=== PATIENT | male | born 1950 ===

== ENCOUNTER 2017-01-14 14:34 | Observation (INO) | payer MEDICARE, MEDICAID ==
[2017-01-14 14:35] VITALS: BMI 22.8
[2017-01-14] MEDS ORDERED: Sodium Chloride 0.9% 1,000 ML IV STA ×2 (15:00→18:55)
--- NOTE | 2017-01-14 15:10 | ED PDOC ---
HPI: Psych/Substance Abuse Time Seen by Provider: 01/14/17 14:47 Chief Complaint (Nursing): Weakness/Neurological Deficit Chief Complaint (Provider): Depression/Generalized Weakness History Per: Patient, Family History/Exam Limitations: no limitations Onset/Duration Of Symptoms: Days (since yesterday) Current Symptoms Are (Timing): Still Present Suicide/Self Injury Attempted (Context): None Associated Symptoms: Depression Involuntary Hold By: None Additional Complaint(s): Osmar Bassett is a 66 year old male, with a past medical history inclusive of CAD (s/p CABG), HTN, hypercholesterolemia, type II diabetes, depression and anxiety, who presents to the ED on 01/14/17, accompanied by a family member, for the evaluation of moderate, generalized weakness that he has experienced since yesterday. Per family member, patient has been more depressed of late, with her having noted decreases in both his appetite and activity levels (more sedentary/sleeping more) as well as that he has not been taking care of himself. Denies headache, dizziness, numbness/tingling, focal neurological deficits, chest pain, shortness of breath, cough, vomiting or abdominal pain, though he did experience 1-2 episodes of diarrhea a few days ago; since resolved. Not suicidal or homicidal. No drugs or etoh. PMD: Masood Allen Past Medical History Reviewed: Historical Data, Nursing Documentation, Vital Signs Vital Signs: Last Vital Signs Temp 98.1 F 01/14/17 14:38 Pulse 90 01/14/17 14:38 Resp 20 01/14/17 14:38 BP 106/58 L 01/14/17 14:38 Pulse Ox 99 01/14/17 14:38 - Medical History PMH: Anxiety, Benign Prostatic Hyperplasia, CAD, Depression, Diabetes (type 2), HTN, Hypercholesterolemia Denies: Hepatitis, HIV, Seizures, Sexually Transmitted Disease - Surgical History Surgical History: CABG - Family History Family History: States: Unknown Family Hx - Living Arrangements Living Arrangements: With Family - Social History Current smoker - smoking cessation education provided: Yes - Immunization History Hx Tetanus Toxoid Vaccination: No Hx Influenza Vaccination: No Hx Pneumococcal Vaccination: No - Home Medications Home Medications: Ambulatory Orders Medication Instructions Recorded Fenofibrate 200 mg PO DAILY 04/12/16 Linagliptin/Metformin HCl 1 tab PO BID 04/12/16 [Jentadueto 2.5 mg-1000 mg Tab] Metoprolol Succinate [Toprol XL] 25 mg PO DAILY 04/12/16 Pioglitazone HCl [Actos] 30 mg PO DAILY 04/12/16 Icosapent Ethyl [Vascepa] 2 gm PO BID 06/07/16 Aspirin [Ecotrin] 81 mg PO DAILY #0 tabec 06/17/16 Atorvastatin [Lipitor] 80 mg PO DAILY #0 tab 06/17/16 Donepezil [Aricept] 10 mg PO HS #0 tab 06/17/16 Insulin Detemir [Levemir] 10 units SC HS #0 vial 06/17/16 SITagliptin [Januvia] 50 mg PO DAILY #0 tab 06/17/16 Tamsulosin [Flomax] 0.4 mg PO DAILY #0 cap 06/17/16 buPROPion SR [Wellbutrin SR 150 MG] 150 mg PO DAILY #0 tab 06/17/16 Acetaminophen [Tylenol 325mg tab] 650 mg PO Q4H PRN 06/18/16 Albuterol/Ipratropium [Duoneb 3 3 ml IH BID PRN 06/18/16 mg/0.5 mg (3 ml) UD] Aluminum Hydroxide/Magnesium H 30 ml PO Q4H PRN 06/18/16 [Maalox 30 ml] Bismuth Subsalicylate 524 mg PO Q4H PRN 06/18/16 [Pepto-Bismol] LORazepam [Ativan] 0.5 mg PO Q6H PRN 06/18/16 Magnesium Hydroxide [Milk Of 30 ml PO HS PRN 06/18/16 Magnesia] Nicotine 14 mg/24 hr [Nicoderm CQ] 1 patch TD DAILY 06/18/16 Ondansetron ODT [Zofran ODT] 4 mg PO Q8H PRN 06/18/16 traZODone [Desyrel] 50 mg PO HS PRN 06/18/16 - Allergies Allergies/Adverse Reactions: Allergies Allergy/AdvReac Type Severity Reaction Status Date / Time shellfish derived Allergy RASH Verified 01/14/17 14:36 Review of Systems ROS Statement: Except As Marked, All Systems Reviewed And Found Negative Constitutional: Positive for: Weakness (generalized) Cardiovascular: Negative for: Chest Pain Respiratory: Negative for: Cough, Shortness of Breath Gastrointestinal: Positive for: Diarrhea (1-2 episodes a few days ago, since resolved), Other (decreased appetite). Negative for: Vomiting, Abdominal Pain Neurological: Negative for: Weakness, Numbness, Headache, Dizziness Psych: Positive for: Depression, Other (decreased activity level/increased sleeping) Physical Exam - Reviewed Nursing Documentation Reviewed: Yes Vital Signs Reviewed: Yes - Physical Exam Appears: Positive for: Non-toxic, No Acute Distress Head Exam: Positive for: ATRAUMATIC, NORMOCEPHALIC Skin: Positive for: Normal Color, Warm, Dry Eye Exam: Positive for: EOMI, Normal appearance, PERRL ENT: Positive for: Normal ENT Inspection Neck: Positive for: Normal, Painless ROM, Supple Cardiovascular/Chest: Positive for: Regular Rate, Rhythm. Negative for: Murmur Respiratory: Positive for: Normal Breath Sounds. Negative for: Respiratory Distress Gastrointestinal/Abdominal: Positive for: Normal Exam, Soft. Negative for: Tenderness Back: Positive for: Normal Inspection. Negative for: L CVA Tenderness, R CVA Tenderness Extremity: Positive for: Normal ROM. Negative for: Tenderness, Pedal Edema, Swelling Neurologic/Psych: Positive for: Alert, eyedotter II-XII (intact), Oriented. Negative for: Motor/Sensory Deficits (5/5 x4 extremities) - Laboratory Results Result Diagrams: 01/14/17 16:00 - ECG ECG: Positive for: Interpreted By Me, Viewed By Wy ECG Rhythm: Positive for: Sinus Rhythm, Right Bundle Branch Block Interpretation Of Abn EKG: same as old O2 Sat by Pulse Oximetry: 99 (RA) Pulse Ox Interpretation: Normal - Progress ED Course And Treament: 1648: Dr. Graves to take over care and fu on labs and imaging. Dispo accordingly. Medical Decision Making Medical Decision Makin:47 Initial Impression: depression, generalized weakness Initial Plan: * EKG * CXR * Labs * Alcohol Serum * Troponin I * PTT * PT * Glucose/Blood/POC * Urine Drug Screen * IV NS 1000ml at 1000mls/hr * Reevaluation Scribe Attestation: Documented by Sendy Madrigal, acting as a scribe for Dany Nelson MD. Provider Scribe Attestation: All medical record entries made by the Scribe were at my direction and personally dictated by me. I have reviewed the chart and agree that the record accurately reflects my personal performance of the history, physical exam, medical decision making, and the department course for this patient. I have also personally directed, reviewed, and agree with the discharge instructions and disposition. Disposition - Clinical Impression Clinical Impression: Depression, Weakness - Patient ED Disposition Is Patient to be Admitted: Transfer of Care - Disposition Disposition: Transfer of Care Disposition Time: 16:49 Condition: STABLE Instructions: Weakness (ED) Patient Signed Over To: Yodit Graves
--- NOTE | 2017-01-14 16:11 | RAD ---
HISTORY: DEPRESSED portable upright study 15:15. COMPARISON: 06/18/2016 FINDINGS: LUNGS: No active pulmonary disease. PLEURA: No significant pleural effusion identified, no pneumothorax apparent. CARDIOVASCULAR: No radiographic findings to suggest acute or significant cardiovascular disease. OSSEOUS STRUCTURES: No significant abnormalities. VISUALIZED UPPER ABDOMEN: Normal. OTHER FINDINGS: None. IMPRESSION: No active disease. No significant interval change compared to the prior examination(s).
[2017-01-14 16:27] LABS: BASO # 0.1 K/uL (0.0-0.2); BASO % 1.1 % (0.0-2.0); EOS # 0.2 K/uL (0.0-0.7); EOS % 1.4 % (0.0-4.0); HEMATOCRIT 50.6 % (35.0-51.0); LYMPH # 1.7 K/uL (1.0-4.3); LYMPH % 15.6 % (20.0-40.0); MEAN CELL VOLUME 89.8 fl (80.0-94.0); MEAN CORPUSCULAR HEMOGLOBIN 29.2 pg (27.0-31.0); MEAN CORPUSCULAR HGB CONC 32.6 g/dL (33.0-37.0); MEAN PLATELET VOLUME 9.3 fl (7.2-11.7); MONO # 0.7 K/uL (0.0-0.8); NEUT # 8.3 K/uL (1.8-7.0); NEUT % 75.9 % (50.0-75.0); NRBC % 0.2 % (0.0-0.0); RED CELL DISTRIBUTION WIDTH 14.3 % (11.5-14.5)
[2017-01-14 16:47] LABS: ALCOHOL SERUM < 10 mg/dl (0-10); ALKALINE PHOSPHATASE 82 U/L (38-126); ALT/SGPT 22 U/L (21-72); AST/SGOT 22 U/L (17-59); BILIRUBIN,TOTAL 0.4 mg/dl (0.2-1.3); BLOOD UREA NITROGEN 34 mg/dl (9-20); CALCIUM 10.1 mg/dL (8.4-10.2); CARBON DIOXIDE 25 mmol/L (22-30); CHLORIDE 100 mmol/L (98-107); GFR AFRICAN-AMERICAN > 60; GLUCOSE,RANDOM 204 mg/dL (75-110); SODIUM 131 mmol/l (132-148); TOTAL PROTEIN 8.2 G/DL (6.3-8.2)
[2017-01-14 17:07] LABS: PARTIAL THROMBOPLASTIN TIME 26.7 SECONDS (23.3-32.5)
--- NOTE | 2017-01-14 18:57 | ED PDOC ---
- Laboratory Results Result Diagrams: 01/14/17 16:00 01/14/17 16:00 - ECG O2 Sat by Pulse Oximetry: 99 (RA) Disposition Doctor Will See Patient In The: Hospital - Clinical Impression Clinical Impression: Depression, Weakness, Hyperkalemia, Hyponatremia - POA Present On Arrival: None - Disposition Disposition: Hospitalized as Observation Patient Disposition Time: 18:57 Condition: GUARDED Instructions: Weakness (ED)
[2017-01-14] MEDS ORDERED: Sod Polystyrene Sulf 15 gm/60 ml Oral Susp ONE (19:17)
[2017-01-14] MEDS: Sod Polystyrene Sulf 15 gm/60 ml Oral Susp PO ONE ×2 (19:27→19:30)
[2017-01-15 07:09] LABS: BLOOD UREA NITROGEN 25 mg/dl (9-20); CARBON DIOXIDE 24 mmol/L (22-30); CHLORIDE 106 mmol/L (98-107); GFR AFRICAN-AMERICAN > 60; GLUCOSE,RANDOM 115 mg/dL (75-110); POTASSIUM 4.2 MMOL/L (3.6-5.0); SODIUM 143 mmol/l (132-148)
[2017-01-15 07:11] LABS: BASO # 0.1 K/uL (0.0-0.2); BASO % 1.8 % (0.0-2.0); EOS # 0.2 K/uL (0.0-0.7); EOS % 3.1 % (0.0-4.0); HEMATOCRIT 45.1 % (35.0-51.0); LYMPH % 29.3 % (20.0-40.0); MEAN CELL VOLUME 89.7 fl (80.0-94.0); MEAN CORPUSCULAR HEMOGLOBIN 29.4 pg (27.0-31.0); MEAN CORPUSCULAR HGB CONC 32.8 g/dL (33.0-37.0); MEAN PLATELET VOLUME 8.9 fl (7.2-11.7); MONO # 0.7 K/uL (0.0-0.8); MONO % 9.6 % (0.0-10.0); NEUT # 3.9 K/uL (1.8-7.0); NEUT % 56.2 % (50.0-75.0); RED CELL DISTRIBUTION WIDTH 13.8 % (11.5-14.5); WHITE BLOOD COUNT 6.9 K/uL (4.8-10.8)
--- NOTE | 2017-01-15 08:02 | CARD ---
APPROVED REPORT EKG Measurement Heart [id number] [id number] <Conclusion> Normal sinus rhythm with sinus arrhythmia Left axis deviation Low voltage QRS Incomplete right bundle branch block Inferior infarct, age undetermined Cannot rule out Anteroseptal infarct, age undetermined Abnormal ECG
[2017-01-15] MEDS ORDERED: Patient's Own Med (Linagliptin/Metformin Hcl [Jentadueto 2.5 Mg-1000 Mg Tab] 1 TAB) PO SCH (09:00)
[2017-01-15 09:09] LABS: THYROID STIMULATING HORMONE 1.16 mIU/ML (0.46-4.68)
[2017-01-15] MEDS: Metoprolol Succinate 25 mg XL Tab PO SCH (09:42)
--- NOTE | 2017-01-15 11:19 | CP.PCM.HP ---
History of Present Illness - History of Present Illness History of Present Illness: This is a 66 y/o male admitted through the Er last night for progressive weakness. note dto have elevated potassium and low sodium. patient lives with , He has a hx of prolonged depression medical hx HTN, DM 2n BPH Hyperlipidemia, dementia Multiple hospitalizations for dehydration . electrolyte imbalance. Present on Admission - Present on Admission Any Indicators Present on Admission: No History of DVT/PE: No History of Uncontrolled Diabetes: Yes Urinary Catheter: No Decubitus Ulcer Present: No Review of Systems - Constitutional Constitutional: Fatigue, Lethargy, Malaise, Weight Loss - Psychiatric Psychiatric: Change in Appetite, Depression Past Patient History - Past Medical History & Family History Past Medical History?: Yes - Past Social History Smoking Status: Former Smoker - CARDIAC Hx Cardiac Disorders: Yes - PULMONARY Hx Tuberculosis: No - NEUROLOGICAL Hx Seizures: No - ENDOCRINE/METABOLIC Hx Endocrine Disorders: Yes Hx Diabetes Mellitus Type 2: Yes - HEMATOLOGICAL/ONCOLOGICAL Hx AIDS: No Hx Human Immunodeficiency Virus (HIV): No - INTEGUMENTARY Hx Dermatological Problems: No - MUSCULOSKELETAL/RHEUMATOLOGICAL Hx Musculoskeletal Disorders: No Hx Falls: No - GASTROINTESTINAL Hx Gastrointestinal Disorders: Yes Hx Diarrhea: Yes Hx Vomiting: Yes - GENITOURINARY/GYNECOLOGICAL Hx Prostate Problems: Yes Hx Sexually Transmitted Disorders: No - PSYCHIATRIC Hx Psychophysiologic Disorder: Yes Hx Depression: Yes Hx Substance Use: No - SURGICAL HISTORY Hx Coronary Artery Bypass Graft: Yes - ANESTHESIA Hx Anesthesia: Yes Hx Anesthesia Reactions: No Hx Malignant Hyperthermia: No Meds Allergies/Adverse Reactions: Allergies Allergy/AdvReac Type Severity Reaction Status Date / Time shellfish derived Allergy RASH Verified 01/14/17 14:36 Physical Exam - Head Exam Head Exam: NORMAL INSPECTION - Eye Exam Eye Exam: Normal appearance - Respiratory Exam Respiratory Exam: Clear to Auscultation Bilateral - Cardiovascular Exam Cardiovascular Exam: REGULAR RHYTHM - GI/Abdominal Exam GI & Abdominal Exam: Normal Bowel Sounds - Neurological Exam Neurological exam: Altered - Psychiatric Exam Psychiatric exam: Depressed - Skin Skin Exam: Normal Color Results - Vital Signs Recent Vital Signs: Last Vital Signs Temp 98.2 F 01/15/17 08:20 Pulse 74 01/15/17 09:42 Resp 18 01/15/17 08:20 BP 129/81 01/15/17 09:42 Pulse Ox 97 01/15/17 08:20 - Labs Result Diagrams: 01/15/17 05:45 01/15/17 05:45 Labs: Laboratory Results - last 24 hr 01/14/17 01/15/17 01/15/17 23:21 05:40 05:45 WBC 6.9 RBC 5.03 Hgb 14.8 Hct 45.1 MCV 89.7 MCH 29.4 MCHC 32.8 L RDW 13.8 Plt Count 265 MPV 8.9 Neut % (Auto) 56.2 Lymph % (Auto) 29.3 [place] % (Auto) 9.6 Eos % (Auto) 3.1 Baso % (Auto) 1.8 Neut # 3.9 Lymph # 2.0 [place] # 0.7 Eos # 0.2 Baso # 0.1 Sodium Potassium Chloride Carbon Dioxide Anion Gap BUN Creatinine Est GFR ( Amer) Est GFR (Non-Af Amer) POC Glucose (mg/dL) 132 H 121 H Random Glucose Calcium Troponin I TSH 3rd Generation 01/15/17 05:45 WBC RBC Hgb Hct MCV MCH MCHC RDW Plt Count MPV Neut % (Auto) Lymph % (Auto) [place] % (Auto) Eos % (Auto) Baso % (Auto) Neut # Lymph # [place] # Eos # Baso # Sodium 143 Potassium 4.2 Chloride 106 Carbon Dioxide 24 Anion Gap 16 BUN 25 H Creatinine 1.0 Est GFR ( Amer) > 60 Est GFR (Non-Af Amer) > 60 POC Glucose (mg/dL) Random Glucose 115 H Calcium 9.0 Troponin I 0.0230 TSH 3rd Generation 1.16 Assessment & Plan (1) Depression Status: Acute (2) Hyperkalemia Status: Acute (3) Hyponatremia Status: Acute (4) Benign prostatic hyperplasia Status: Acute (5) Diabetes mellitus type 2 in nonobese Status: Acute (6) Hypertension Status: Acute - Assessment and Plan (Free Text) Plan: Psych eval labs repeated showed normalization of electrolytes cont hydrate patient Phys therapy medically stable for geroPsych inpatient for depression
--- NOTE | 2017-01-15 14:01 | CP.PCM.CON ---
History of Present Illness - History of Present Illness History of Present Illness: psychiatry consult orderd by dr. waggoner reason: depression cc: i'm not depressed hpi: pt is 66 mal[place], political refugee from the 80[place]. he lives with his . he has history of some dementia and was on step unit in may 2016 with dementia and depression. apparently he has stopped eating, stopped leaving the house and is presenting as more depressed and not able to care for his needs. he denies feeling depressed and denies needing treatment for depression. social: as above medical: diabetes substance use. uds negative. denies mse: alert, oriented to self, place. not to time. he is disheveled. unable to formally assess memory as he is not cooperative. seen with upper sorbian speaking donell daily he reports his mood is "good" his affect is constricted. speech is soft, gives brief answers to questions. thoughts are linear. denies suicidal or homicidal thoughts. denies a/v halluciantions. poor i/j. assessment: dementia by history major depression recurrent by history recommendation: currently not able to consent or agreeing he needs treatment for depression if there is a power of attorny he could transfer to the STEP unit for further assessment when medically cleared. if not, he will need to follow up with outpatient providers when medically cleared continue current psychiatric meds- t/c adding remeron at hs if not sleeping- 7.5mg Past Patient History - Past Medical History & Family History Past Medical History?: Yes - Past Social History Smoking Status: Former Smoker - CARDIAC Hx Cardiac Disorders: Yes - PULMONARY Hx Tuberculosis: No - NEUROLOGICAL Hx Seizures: No - ENDOCRINE/METABOLIC Hx Endocrine Disorders: Yes Hx Diabetes Mellitus Type 2: Yes - HEMATOLOGICAL/ONCOLOGICAL Hx AIDS: No Hx Human Immunodeficiency Virus (HIV): No - INTEGUMENTARY Hx Dermatological Problems: No - MUSCULOSKELETAL/RHEUMATOLOGICAL Hx Musculoskeletal Disorders: No Hx Falls: No - GASTROINTESTINAL Hx Gastrointestinal Disorders: Yes Hx Diarrhea: Yes Hx Vomiting: Yes - GENITOURINARY/GYNECOLOGICAL Hx Prostate Problems: Yes Hx Sexually Transmitted Disorders: No - PSYCHIATRIC Hx Psychophysiologic Disorder: Yes Hx Depression: Yes Hx Substance Use: No - SURGICAL HISTORY Hx Coronary Artery Bypass Graft: Yes - ANESTHESIA Hx Anesthesia: Yes Hx Anesthesia Reactions: No Hx Malignant Hyperthermia: No Meds Allergies/Adverse Reactions: Allergies Allergy/AdvReac Type Severity Reaction Status Date / Time shellfish derived Allergy RASH Verified 01/14/17 14:36 - Medications Medications: Current Medications Aspirin (Ecotrin) 81 mg PO DAILY [facility] Last Admin: 01/15/17 09:44 Dose: 81 mg Atorvastatin Calcium (Lipitor) 20 mg PO DAILY [facility] Last Admin: 01/15/17 09:42 Dose: 20 mg Donepezil HCl (Aricept) 10 mg PO HS [facility] Home Med (Linagliptin/Metformin Hcl [Jentadueto 2.5 Mg-1000 Mg Tab]) 1 tab PO BID [facility] Metoprolol Succinate (Toprol Xl) 25 mg PO DAILY [facility] Last Admin: 01/15/17 09:42 Dose: 25 mg Pioglitazone HCl (Actos) 30 mg PO DAILY [facility] Last Admin: 01/15/17 09:43 Dose: 30 mg Tamsulosin HCl (Flomax) 0.4 mg PO HS [facility] Trazodone HCl (Desyrel) 50 mg PO HS PRN PRN Reason: Insomnia Results - Vital Signs Recent Vital Signs: Last Vital Signs Temp 98.1 F 01/15/17 12:23 Pulse 80 01/15/17 12:23 Resp 18 01/15/17 12:23 BP 120/76 01/15/17 12:23 Pulse Ox 94 L 01/15/17 12:23 - Labs Result Diagrams: 01/15/17 05:45 01/15/17 05:45 Labs: Laboratory Results - last 24 hr 01/14/17 01/15/17 01/15/17 23:21 05:40 05:45 WBC 6.9 RBC 5.03 Hgb 14.8 Hct 45.1 MCV 89.7 MCH 29.4 MCHC 32.8 L RDW 13.8 Plt Count 265 MPV 8.9 Neut % (Auto) 56.2 Lymph % (Auto) 29.3 [place] % (Auto) 9.6 Eos % (Auto) 3.1 Baso % (Auto) 1.8 Neut # 3.9 Lymph # 2.0 [place] # 0.7 Eos # 0.2 Baso # 0.1 Sodium Potassium Chloride Carbon Dioxide Anion Gap BUN Creatinine Est GFR ( Amer) Est GFR (Non-Af Amer) POC Glucose (mg/dL) 132 H 121 H Random Glucose Calcium Troponin I TSH 3rd Generation 01/15/17 01/15/17 05:45 12:06 WBC RBC Hgb Hct MCV MCH MCHC RDW Plt Count MPV Neut % (Auto) Lymph % (Auto) [place] % (Auto) Eos % (Auto) Baso % (Auto) Neut # Lymph # [place] # Eos # Baso # Sodium 143 Potassium 4.2 Chloride 106 Carbon Dioxide 24 Anion Gap 16 BUN 25 H Creatinine 1.0 Est GFR ( Amer) > 60 Est GFR (Non-Af Amer) > 60 POC Glucose (mg/dL) 210 H Random Glucose 115 H Calcium 9.0 Troponin I 0.0230 TSH 3rd Generation 1.16
--- NOTE | 2017-01-16 06:57 | CP.PCM.PN ---
<Henna Alvarez - Last Filed: 01/16/17 15:17> Subjective - Date & Time of Evaluation Date of Evaluation: 01/16/17 Time of Evaluation: 06:57 - Subjective Subjective: f/u depression and altered mental status 66M seen and examined at bedside this morning with attending. Pt reluctant to converse, answers questions regarding shortness of breath and chest pain which he denies but when asked questions about where he is, the date , he simply closes his eyes and turns away. Objective - Vital Signs/Intake and Output Vital Signs (last 24 hours): Temp Pulse Resp BP Pulse Ox 36.1 C L 80 18 103/63 93 L 01/16/17 05:33 01/16/17 05:33 01/16/17 05:33 01/16/17 05:33 01/16/17 05:33 - Medications Medications: Current Medications Aspirin (Ecotrin) 81 mg PO DAILY [facility] Last Admin: 01/15/17 09:44 Dose: 81 mg Atorvastatin Calcium (Lipitor) 20 mg PO DAILY [facility] Last Admin: 01/15/17 09:42 Dose: 20 mg Donepezil HCl (Aricept) 10 mg PO HS [facility] Last Admin: 01/15/17 23:29 Dose: 10 mg Home Med (Linagliptin/Metformin Hcl [Jentadueto 2.5 Mg-1000 Mg Tab]) 1 tab PO BID [facility] Metoprolol Succinate (Toprol Xl) 25 mg PO DAILY [facility] Last Admin: 01/15/17 09:42 Dose: 25 mg Pioglitazone HCl (Actos) 30 mg PO DAILY [facility] Last Admin: 01/15/17 09:43 Dose: 30 mg Tamsulosin HCl (Flomax) 0.4 mg PO HS [facility] Last Admin: 01/15/17 23:29 Dose: 0.4 mg Trazodone HCl (Desyrel) 50 mg PO HS PRN PRN Reason: Insomnia - Labs Labs: PT 10.3 SECONDS (9.6-11.2) 01/14/17 16:00 INR 0.99 (0.92-1.08) 01/14/17 16:00 APTT 26.7 SECONDS (23.3-32.5) 01/14/17 16:00 - Constitutional Appears: Non-toxic, No Acute Distress, Unkempt, Older Than Stated Age - Head Exam Head Exam: ATRAUMATIC, NORMAL INSPECTION - Eye Exam Eye Exam: EOMI, PERRL - ENT Exam ENT Exam: Mucous Membranes Moist, Normal Exam - Neck Exam Neck Exam: Normal Inspection - Respiratory Exam Respiratory Exam: Clear to Ausculation Bilateral, NORMAL BREATHING PATTERN. absent: Rales - Cardiovascular Exam Cardiovascular Exam: REGULAR RHYTHM. absent: JVD - GI/Abdominal Exam GI & Abdominal Exam: Soft, Normal Bowel Sounds. absent: Tenderness - Extremities Exam Extremities Exam: Full ROM, Normal Capillary Refill - Neurological Exam Neurological Exam: Awake. absent: Oriented x3 - Psychiatric Exam Psychiatric exam: Depressed, Flat Affect - Skin Skin Exam: Dry, Warm Assessment and Plan (1) Depression Assessment & Plan: Acute on chronic depressive episode, however when evaluated by psychiatry patient denies depression. As per psychiatry patient was diagnosed dementia and states that in order for him to be admitted to Psych someone with a Power of Hot Metal Mixer Operator Helper has to admit him. SW will provide the with the necessary paperwork for Power of Hot Metal [employer]er Operator Helper. - Psych consult (Dr Smith): c/w current medication, may add Remeron - Trazodone 50mg, PO, HS PRN - Remeron 7.5mg, PO, HS Status: Acute (2) Altered mental status, unspecified Assessment & Plan: This is likely due to underlying dementia exacerbated by worsening depressive symptoms. No underlying medical etiology has been identified. - c/w Trazadone - c/w Aricept - Manage HTN, DM Status: Acute (3) Dementia Assessment & Plan: Chronic, diagnosed last year. - Aricept 10mg, PO, HS Status: Chronic (4) Benign prostatic hyperplasia Assessment & Plan: Chronic, controlled. - FloMax 0.4mg, PO, Daily Status: Chronic (5) Diabetes mellitus type 2 in nonobese Assessment & Plan: Chronic, not well-controlled on Actose alone. Started insulin coverage while inpatient and will re-eval for alternative PO medications. TDD: 21U (0.3/kg/day ) - Actos 30mg, PO, Daily - 10U Levemir, SC, HS - 3U Lispro, SC, ACTID - Hypoglycemic Bundle - Accu-checks - Atorvastatin 20mg, PO, Daily - Aspirin 81mg, PO, Daily Status: Chronic (6) Hypertension Assessment & Plan: Chronic, controlled - Toprol XL 25mg, PO, Daily Status: Chronic (7) DVT prophylaxis Assessment & Plan: Lovenox 40mg, SC, HS Status: Acute <AllenMasood Abilio - Last Filed: 01/17/17 15:29> Objective - Vital Signs/Intake and Output Vital Signs (last 24 hours): Temp Pulse Resp BP Pulse Ox 97.5 F L 76 20 105/72 96 01/17/17 07:31 01/17/17 12:34 01/17/17 07:31 01/17/17 08:22 01/17/17 12:34 - Medications Medications: Current Medications Aspirin (Ecotrin) 81 mg PO DAILY [facility] Last Admin: 01/17/17 08:22 Dose: 81 mg Atorvastatin Calcium (Lipitor) 20 mg PO DAILY [facility] Last Admin: 01/17/17 08:23 Dose: 20 mg Dextrose (Dextrose 50% Inj) 0 ml IV STAT PRN; Protocol PRN Reason: Hyglycemia Protocol Dextrose (Glutose 15) 0 gm PO ONCE PRN; Protocol PRN Reason: Hypoglycemia Protocol Donepezil HCl (Aricept) 10 mg PO HS [facility] Last Admin: 01/16/17 21:42 Dose: 10 mg Enoxaparin Sodium (Lovenox) 40 mg SC HS [facility] PRN Reason: Protocol Last Admin: 01/16/17 21:24 Dose: 40 mg Glucagon (Glucagen Diagnostic Kit) 0 mg IM STAT PRN; Protocol PRN Reason: Hypoglycemia Protocol Home Med (Linagliptin/Metformin Hcl [Jentadueto 2.5 Mg-1000 Mg Tab]) 1 tab PO BID [facility] Insulin Detemir (Levemir) 10 units SC HS [facility] Last Admin: 01/16/17 22:34 Dose: 10 units Metformin HCl (Glucophage) 850 mg PO BIDWM [facility] Metoprolol Succinate (Toprol Xl) 25 mg PO DAILY [facility] Last Admin: 01/17/17 08:22 Dose: 25 mg Mirtazapine (Remeron) 7.5 mg PO HS [facility] Last Admin: 01/16/17 21:42 Dose: 7.5 mg Pioglitazone HCl (Actos) 30 mg PO DAILY [facility] Last Admin: 01/17/17 08:23 Dose: 30 mg Sitagliptin Phosphate (Januvia) 100 mg PO DAILY [facility] Tamsulosin HCl (Flomax) 0.4 mg PO HS [facility] Last Admin: 01/16/17 21:24 Dose: 0.4 mg Trazodone HCl (Desyrel) 50 mg PO HS PRN PRN Reason: Insomnia - Labs Labs: PT 10.3 SECONDS (9.6-11.2) 01/14/17 16:00 INR 0.99 (0.92-1.08) 01/14/17 16:00 APTT 26.7 SECONDS (23.3-32.5) 01/14/17 16:00 Assessment and Plan (1) Depression Status: Acute (2) Hyperkalemia Status: Acute (3) Hyponatremia Status: Acute (4) Benign prostatic hyperplasia Status: Chronic (5) Diabetes mellitus type 2 in nonobese Status: Chronic (6) Hypertension Status: Chronic (7) Failure to thrive in adult Status: Acute - Assessment and Plan (Free Text) Plan: I was present during evaluation and discussed with Dr Antonio richmond plans of care.
[2017-01-16] MEDS: Metoprolol Succinate 25 mg XL Tab PO SCH (08:30)
[2017-01-16] MEDS ORDERED: Dextrose 50% SYRINGE Inj (50 ml) IV PRN (11:18)
[2017-01-16] MEDS ORDERED: Glucagon Recombinant 1 mg Inj IM PRN (11:18)
[2017-01-16] MEDS ORDERED: Insulin Lispro (humaLOG) 100 Units/ml Inj SC SCH (11:30)
[2017-01-16] MEDS: Insulin Lispro (humaLOG) 100 Units/ml Inj SC SCH ×2 (12:51→16:33)
[2017-01-16] MEDS: Enoxaparin 40 mg Syringe SC SCH (21:24)
[2017-01-16] MEDS: Insulin Detemir 100 Units/ml Inj SC SCH (22:34)
[2017-01-17] MEDS: Insulin Lispro (humaLOG) 100 Units/ml Inj SC SCH ×2 (08:20→11:04)
[2017-01-17] MEDS: Metoprolol Succinate 25 mg XL Tab PO SCH (08:22)
--- NOTE | 2017-01-17 15:24 | CP.PCM.PN ---
Subjective - Date & Time of Evaluation Date of Evaluation: 01/17/17 Time of Evaluation: 15:21 - Subjective Subjective: Patient is much more awake. Has no chest pain or SOB by bedside Has no fever rHas fair intake Objective - Vital Signs/Intake and Output Vital Signs (last 24 hours): Temp Pulse Resp BP Pulse Ox 97.5 F L 76 20 105/72 96 01/17/17 07:31 01/17/17 12:34 01/17/17 07:31 01/17/17 08:22 01/17/17 12:34 - Medications Medications: Current Medications Aspirin (Ecotrin) 81 mg PO DAILY [facility] Last Admin: 01/17/17 08:22 Dose: 81 mg Atorvastatin Calcium (Lipitor) 20 mg PO DAILY [facility] Last Admin: 01/17/17 08:23 Dose: 20 mg Dextrose (Dextrose 50% Inj) 0 ml IV STAT PRN; Protocol PRN Reason: Hyglycemia Protocol Dextrose (Glutose 15) 0 gm PO ONCE PRN; Protocol PRN Reason: Hypoglycemia Protocol Donepezil HCl (Aricept) 10 mg PO HS [facility] Last Admin: 01/16/17 21:42 Dose: 10 mg Enoxaparin Sodium (Lovenox) 40 mg SC [facility] PRN Reason: Protocol Last Admin: 01/16/17 21:24 Dose: 40 mg Glucagon (Glucagen Diagnostic Kit) 0 mg IM STAT PRN; Protocol PRN Reason: Hypoglycemia Protocol Home Med (Linagliptin/Metformin Hcl [Jentadueto 2.5 Mg-1000 Mg Tab]) 1 tab PO BID [facility] Insulin Detemir (Levemir) 10 units SC HS [facility] Last Admin: 01/16/17 22:34 Dose: 10 units Insulin Human Lispro (Humalog) 3 units SC ACTID [facility] Last Admin: 01/17/17 11:04 Dose: 3 units Metoprolol Succinate (Toprol Xl) 25 mg PO DAILY [facility] Last Admin: 01/17/17 08:22 Dose: 25 mg Mirtazapine (Remeron) 7.5 mg PO HS [facility] Last Admin: 01/16/17 21:42 Dose: 7.5 mg Pioglitazone HCl (Actos) 30 mg PO DAILY [facility] Last Admin: 01/17/17 08:23 Dose: 30 mg Tamsulosin HCl (Flomax) 0.4 mg PO HS [facility] Last Admin: 01/16/17 21:24 Dose: 0.4 mg Trazodone HCl (Desyrel) 50 mg PO HS PRN PRN Reason: Insomnia - Labs Labs: PT 10.3 SECONDS (9.6-11.2) 01/14/17 16:00 INR 0.99 (0.92-1.08) 01/14/17 16:00 APTT 26.7 SECONDS (23.3-32.5) 01/14/17 16:00 - Head Exam Head Exam: NORMAL INSPECTION - Eye Exam Eye Exam: Normal appearance - ENT Exam ENT Exam: Mucous Membranes Moist - Cardiovascular Exam Cardiovascular Exam: REGULAR RHYTHM - GI/Abdominal Exam GI & Abdominal Exam: Normal Bowel Sounds - Neurological Exam Neurological Exam: Awake, Oriented x3 - Psychiatric Exam Psychiatric exam: Normal Mood Assessment and Plan (1) Depression Status: Acute (2) Hyperkalemia Status: Acute (3) Hyponatremia Status: Acute (4) Benign prostatic hyperplasia Status: Chronic (5) Diabetes mellitus type 2 in nonobese Status: Chronic (6) Hypertension Status: Chronic (7) Failure to thrive in adult Status: Acute - Assessment and Plan (Free Text) Plan: Contmeds megace ensure phys therapy subacute rehab start po meds for DM 2. metformin pioglitazone and hjanuvia
[2017-01-17] MEDS: Enoxaparin 40 mg Syringe SC SCH (21:28)
[2017-01-17] MEDS: Insulin Detemir 100 Units/ml Inj SC SCH (22:20)
[2017-01-18] MEDS: Metoprolol Succinate 25 mg XL Tab PO SCH (09:24)
--- NOTE | 2017-01-18 13:09 | CP.PCM.PN ---
Subjective - Date & Time of Evaluation Date of Evaluation: 01/18/17 Time of Evaluation: 13:09 - Subjective Subjective: patient remains stable. but very confused at times. Very anxious. has fair appetite with assistance of . Objective - Vital Signs/Intake and Output Vital Signs (last 24 hours): Temp Pulse Resp BP Pulse Ox 97.4 F L 85 20 123/65 98 01/18/17 07:30 01/18/17 09:24 01/18/17 07:30 01/18/17 09:24 01/18/17 07:30 - Medications Medications: Current Medications Aspirin (Ecotrin) 81 mg PO DAILY [facility] Last Admin: 01/18/17 09:23 Dose: 81 mg Atorvastatin Calcium (Lipitor) 20 mg PO DAILY [facility] Last Admin: 01/18/17 09:24 Dose: 20 mg Dextrose (Dextrose 50% Inj) 0 ml IV STAT PRN; Protocol PRN Reason: Hyglycemia Protocol Dextrose (Glutose 15) 0 gm PO ONCE PRN; Protocol PRN Reason: Hypoglycemia Protocol Donepezil HCl (Aricept) 10 mg PO HS [facility] Last Admin: 01/17/17 21:28 Dose: 10 mg Enoxaparin Sodium (Lovenox) 40 mg SC HS [facility] PRN Reason: Protocol Last Admin: 01/17/17 21:28 Dose: 40 mg Glucagon (Glucagen Diagnostic Kit) 0 mg IM STAT PRN; Protocol PRN Reason: Hypoglycemia Protocol Insulin Detemir (Levemir) 10 units SC HS [facility] Last Admin: 01/17/17 22:20 Dose: 10 units Metformin HCl (Glucophage) 850 mg PO BIDWM [facility] Last Admin: 01/18/17 09:23 Dose: 850 mg Metoprolol Succinate (Toprol Xl) 25 mg PO DAILY [facility] Last Admin: 01/18/17 09:24 Dose: 25 mg Mirtazapine (Remeron) 7.5 mg PO [facility] Last Admin: 01/17/17 21:28 Dose: 7.5 mg Pioglitazone HCl (Actos) 30 mg PO DAILY [facility] Last Admin: 01/18/17 09:23 Dose: 30 mg Sitagliptin Phosphate (Januvia) 100 mg PO DAILY [facility] Last Admin: 01/18/17 09:23 Dose: 100 mg Tamsulosin HCl (Flomax) 0.4 mg PO [facility] Last Admin: 01/17/17 21:28 Dose: 0.4 mg Trazodone HCl (Desyrel) 50 mg PO HS PRN PRN Reason: Insomnia - Labs Labs: PT 10.3 SECONDS (9.6-11.2) 01/14/17 16:00 INR 0.99 (0.92-1.08) 01/14/17 16:00 APTT 26.7 SECONDS (23.3-32.5) 01/14/17 16:00 - Head Exam Head Exam: NORMAL INSPECTION - Eye Exam Eye Exam: Normal appearance - ENT Exam ENT Exam: Mucous Membranes Moist - Respiratory Exam Respiratory Exam: Clear to Ausculation Bilateral - Cardiovascular Exam Cardiovascular Exam: REGULAR RHYTHM - Neurological Exam Neurological Exam: Awake, Oriented x3 - Psychiatric Exam Psychiatric exam: Anxious, Depressed Assessment and Plan (1) Depression Status: Acute (2) Hyperkalemia Status: Acute (3) Hyponatremia Status: Acute (4) Benign prostatic hyperplasia Status: Chronic (5) Diabetes mellitus type 2 in nonobese Status: Chronic (6) Hypertension Status: Chronic (7) Failure to thrive in adult Status: Acute - Assessment and Plan (Free Text) Plan: contmeds cotn tx cont PT subacute rehab
[2017-01-18] MEDS: Insulin Regular 100 units/ml SC SCH ×2 (17:49→23:27)
[2017-01-18] MEDS: Enoxaparin 40 mg Syringe SC SCH (21:38)
[2017-01-18] MEDS: Insulin Detemir 100 Units/ml Inj SC SCH (21:42)
[2017-01-19] MEDS: Insulin Regular 100 units/ml SC SCH ×4 (06:50→23:16)
[2017-01-19] MEDS: Metoprolol Succinate 25 mg XL Tab PO SCH (09:36)
--- NOTE | 2017-01-19 10:01 | CP.PCM.PN ---
Subjective - Date & Time of Evaluation Date of Evaluation: 01/19/17 Time of Evaluation: 09:59 - Subjective Subjective: Patient is much more awake and less confused Stays mostly in bed Discussed with over the weekend and agreed with rn long term care subacute pref [place]. Objective - Vital Signs/Intake and Output Vital Signs (last 24 hours): Temp Pulse Resp BP Pulse Ox 97.3 F L 76 20 127/72 97 01/19/17 07:36 01/19/17 09:36 01/19/17 07:36 01/19/17 09:36 01/19/17 07:36 - Medications Medications: Current Medications Aspirin (Ecotrin) 81 mg PO DAILY [facility] Last Admin: 01/19/17 09:35 Dose: 81 mg Atorvastatin Calcium (Lipitor) 20 mg PO DAILY [facility] Last Admin: 01/19/17 09:36 Dose: 20 mg Dextrose (Dextrose 50% Inj) 0 ml IV STAT PRN; Protocol PRN Reason: Hyglycemia Protocol Dextrose (Glutose 15) 0 gm PO ONCE PRN; Protocol PRN Reason: Hypoglycemia Protocol Donepezil HCl (Aricept) 10 mg PO HS [facility] Last Admin: 01/18/17 21:37 Dose: 10 mg Enoxaparin Sodium (Lovenox) 40 mg SC HS [facility] PRN Reason: Protocol Last Admin: 01/18/17 21:38 Dose: 40 mg Glucagon (Glucagen Diagnostic Kit) 0 mg IM STAT PRN; Protocol PRN Reason: Hypoglycemia Protocol Insulin Detemir (Levemir) 10 units SC HS [facility] Last Admin: 01/18/17 21:42 Dose: 10 units Insulin Human Regular (Humulin R) 0 units SC ACCU-CHECK [facility] PRN Reason: Protocol Last Admin: 01/19/17 06:50 Dose: Not Given Metformin HCl (Glucophage) 850 mg PO BIDWM [facility] Last Admin: 01/19/17 09:36 Dose: 850 mg Metoprolol Succinate (Toprol Xl) 25 mg PO DAILY [facility] Last Admin: 01/19/17 09:36 Dose: 25 mg Mirtazapine (Remeron) 7.5 mg PO HS [facility] Last Admin: 01/18/17 21:37 Dose: 7.5 mg Pioglitazone HCl (Actos) 30 mg PO DAILY [facility] Last Admin: 01/19/17 09:35 Dose: 30 mg Sitagliptin Phosphate (Januvia) 100 mg PO DAILY [facility] Last Admin: 01/19/17 09:36 Dose: 100 mg Tamsulosin HCl (Flomax) 0.4 mg PO HS [facility] Last Admin: 01/18/17 21:38 Dose: 0.4 mg Trazodone HCl (Desyrel) 50 mg PO HS PRN PRN Reason: Insomnia - Labs Labs: PT 10.3 SECONDS (9.6-11.2) 01/14/17 16:00 INR 0.99 (0.92-1.08) 01/14/17 16:00 APTT 26.7 SECONDS (23.3-32.5) 01/14/17 16:00 - Head Exam Head Exam: NORMAL INSPECTION - Eye Exam Eye Exam: Normal appearance - ENT Exam ENT Exam: Mucous Membranes Moist - Respiratory Exam Respiratory Exam: Clear to Ausculation Bilateral - Cardiovascular Exam Cardiovascular Exam: REGULAR RHYTHM - GI/Abdominal Exam GI & Abdominal Exam: Normal Bowel Sounds - Psychiatric Exam Psychiatric exam: Anxious, Depressed Assessment and Plan (1) Depression Status: Acute (2) Hyperkalemia Status: Acute (3) Hyponatremia Status: Acute (4) Benign prostatic hyperplasia Status: Chronic (5) Diabetes mellitus type 2 in nonobese Status: Chronic (6) Hypertension Status: Chronic (7) Failure to thrive in adult Status: Acute - Assessment and Plan (Free Text) Plan: Cont meds Cont tx Cont PT subacute rehab eval. ambulate.
[2017-01-19 12:44] LABS: MEAN CELL VOLUME 88.9 fl (80.0-94.0); MEAN CORPUSCULAR HEMOGLOBIN 29.7 pg (27.0-31.0); MEAN CORPUSCULAR HGB CONC 33.4 g/dL (33.0-37.0); RED CELL DISTRIBUTION WIDTH 13.8 % (11.5-14.5)
[2017-01-19 13:01] LABS: BLOOD UREA NITROGEN 20 mg/dl (9-20); CARBON DIOXIDE 24 mmol/L (22-30); CHLORIDE 105 mmol/L (98-107); GFR AFRICAN-AMERICAN > 60; GLUCOSE,RANDOM 300 mg/dL (75-110); POTASSIUM 4.3 MMOL/L (3.6-5.0); SODIUM 138 mmol/l (132-148)
[2017-01-19] MEDS: Enoxaparin 40 mg Syringe SC SCH (21:17)
[2017-01-19] MEDS: Insulin Detemir 100 Units/ml Inj SC SCH (23:12)
[2017-01-20] MEDS: Insulin Regular 100 units/ml SC SCH ×3 (06:31→16:40)
[2017-01-20] MEDS: Metoprolol Succinate 25 mg XL Tab PO SCH (09:02)
--- NOTE | 2017-01-20 10:05 | CP.PCM.PN ---
Subjective - Date & Time of Evaluation Date of Evaluation: 01/20/17 Time of Evaluation: 10:04 - Subjective Subjective: Patient remains stable Still very anxious at times Awaiting for intermediate teacher subacute eval. Objective - Vital Signs/Intake and Output Vital Signs (last 24 hours): Temp Pulse Resp BP Pulse Ox 98.1 F 90 18 136/79 95 01/20/17 08:20 01/20/17 09:02 01/20/17 08:20 01/20/17 09:02 01/20/17 08:20 - Medications Medications: Current Medications Aspirin (Ecotrin) 81 mg PO DAILY [facility] Last Admin: 01/20/17 09:06 Dose: 81 mg Atorvastatin Calcium (Lipitor) 20 mg PO DAILY [facility] Last Admin: 01/20/17 09:02 Dose: 20 mg Dextrose (Dextrose 50% Inj) 0 ml IV STAT PRN; Protocol PRN Reason: Hyglycemia Protocol Dextrose (Glutose 15) 0 gm PO ONCE PRN; Protocol PRN Reason: Hypoglycemia Protocol Donepezil HCl (Aricept) 10 mg PO HS [facility] Last Admin: 01/19/17 21:16 Dose: 10 mg Enoxaparin Sodium (Lovenox) 40 mg SC HS [facility] PRN Reason: Protocol Last Admin: 01/19/17 21:17 Dose: 40 mg Glucagon (Glucagen Diagnostic Kit) 0 mg IM STAT PRN; Protocol PRN Reason: Hypoglycemia Protocol Insulin Detemir (Levemir) 10 units SC HS [facility] Last Admin: 01/19/17 23:12 Dose: 10 units Insulin Human Regular (Humulin R) 0 units SC ACCU-CHECK [facility] PRN Reason: Protocol Last Admin: 01/20/17 06:31 Dose: Not Given Metformin HCl (Glucophage) 850 mg PO BIDWM [facility] Last Admin: 01/20/17 09:01 Dose: 850 mg Metoprolol Succinate (Toprol Xl) 25 mg PO DAILY [facility] Last Admin: 01/20/17 09:02 Dose: 25 mg Mirtazapine (Remeron) 7.5 mg PO HS [facility] Last Admin: 01/19/17 22:30 Dose: 7.5 mg Pioglitazone HCl (Actos) 30 mg PO DAILY [facility] Last Admin: 01/20/17 09:01 Dose: 30 mg Sitagliptin Phosphate (Januvia) 100 mg PO DAILY [facility] Last Admin: 01/20/17 09:01 Dose: 100 mg Tamsulosin HCl (Flomax) 0.4 mg PO HS [facility] Last Admin: 01/19/17 21:16 Dose: 0.4 mg Trazodone HCl (Desyrel) 50 mg PO HS PRN PRN Reason: Insomnia - Labs Labs: 01/19/17 12:10 01/19/17 12:10 PT 10.3 SECONDS (9.6-11.2) 01/14/17 16:00 INR 0.99 (0.92-1.08) 01/14/17 16:00 APTT 26.7 SECONDS (23.3-32.5) 01/14/17 16:00 Assessment and Plan (1) Depression Status: Acute (2) Hyperkalemia Status: Acute (3) Hyponatremia Status: Acute (4) Benign prostatic hyperplasia Status: Chronic (5) Diabetes mellitus type 2 in nonobese Status: Chronic (6) Hypertension Status: Chronic (7) Failure to thrive in adult Status: Acute
[2017-01-20 16:25] VITALS: BP 132/75; PULSE 81; RESP 20; TEMP 97.4; O2SAT 96
== END 2017-01-20 19:45 ==
LOC: H.ER 14:34 → H.ERHOLD 18:57 → H.TEL 21:47 → OBSVTOIN 01-15 16:40 → INTOOBSV 01-15 16:40 → H.MEDSURG1 01-16 17:34
PROVIDERS: ADMIT Family Medicine; ATTEND Family Medicine
DX: E87.5 Hyperkalemia (principal); F03.90 Unspecified dementia, unspecified severity, without behavioral disturbance, psychotic disturbance, mood disturbance, and anxiety; F33.9 Major depressive disorder, recurrent, unspecified; I25.10 Atherosclerotic heart disease of native coronary artery without angina pectoris; E87.1 Hypo-osmolality and hyponatremia; I10 Essential (primary) hypertension; E11.9 Type 2 diabetes mellitus without complications; Z95.1 Presence of aortocoronary bypass graft; E78.00 Pure hypercholesterolemia, unspecified; F17.200 Nicotine dependence, unspecified, uncomplicated; R53.1 Weakness; N40.0 Benign prostatic hyperplasia without lower urinary tract symptoms; E78.5 Hyperlipidemia, unspecified; R62.7 Adult failure to thrive
CPT/HCPCS: 36415; 71010; 80048; 80053; 82948; 84443; 84484; 85025; 85027; 85610; 85730; 92526; 92610; 93005; 97162; 97530; 99285; G0378; G0480; G8978; G8979; G8996; G8997; G8998; J1650; J7040